=== PATIENT | male | born 2000 | race African-American/Black ===

== ENCOUNTER 2022-08-02 14:07 | Emergency (ER) | payer OTHER ==
[~2022-08-02] VITALS: Ht 170.2 cm; Wt 82.0 kg
[2022-08-02 14:14] VITALS: BP 125/69
[2022-08-02] MEDS ORDERED: XLV MT (16:31)
[2022-08-02] MEDS ORDERED: FAMO-135 MT (16:31)
== END 2022-08-02 16:45 | disposition home or self-care (01) ==
LOC: ER 14:07
DX: R13.10 Dysphagia, unspecified (principal)
CPT/HCPCS: 99281; 99283